=== PATIENT | male | born 1945 | race Caucasian/White ===

== ENCOUNTER 2018-04-25 05:28 | Day surgery (SDC) | payer OTHER, MEDICARE ==
[~2018-04-25] VITALS: Ht 188 cm; Wt 158.8 kg
--- NOTE | ~2018-04-25 | O ---
[facility] [place] [address] OPERATIVE REPORT Name: FLAKITO CALVIN Room #: 150-8 [facility] M..#: [id number] Admission: 04/25/18 Attend Phys: Surinder Mack MD Discharge: Date of : 49 Report #: [id number] THIS REPORT FOR: //name// CC: Jose Rafael Mack DATE OF SERVICE: 04/25/2018 SUPERVISOR PAINTING: None. PREOPERATIVE DIAGNOSIS: Unilateral right upper lid ptosis. POSTOPERATIVE DIAGNOSIS: Unilateral right upper lid ptosis. OPERATION PERFORMED: Unilateral right upper lid ptosis repair. ANESTHESIA: Local anesthesia with IV sedation. COMPLICATIONS: None. INDICATIONS FOR SURGERY: This patient has right upper lid ptosis with superior visual field loss. Visual field testing demonstrates dense superior visual defects. Retesting with the upper lid elevated shows an improvement in visual field loss of over 30% and in excess of 12 degrees. The current procedure is undertaken in order to improve the patient's visual function. Informed consent was obtained to include but not limited to the potential risks for bleeding, scarring, infection, loss of vision, failure to improve the problem, need for further surgery and need for adjustment of lid height. DESCRIPTION OF PROCEDURE: The patient was taken to the operating room, where a right upper lid crease was drawn with a skin marking pen. The incision was then made with Luly scissors and dissected down to the orbital septum. Hemostasis was achieved with a monopolar cautery as it was throughout the case. The orbital septum was then entered and the preaponeurotic fat identified. The levator aponeurosis was then disinserted from the anterior surface of the tarsal plate and dissected free in the avascular Ahumada's muscle plane. The aponeurosis was then advanced onto the anterior surface of the tarsal plate and reattached with mattress double-arm 6-0 Novafil sutures, adjusting for height and contour. The redundant aponeurosis was then amputated. The upper lid crease was then reformed with interrupted 6-0 chromic sutures. The skin was closed with interrupted 6-0 plain gut suture. The wound was then cleaned and dressed with ophthalmic antibiotic ointment. [facility] [address] [place] [address] OPERATIVE REPORT Name: FLAKITO CALVIN Room #: 150-8 [facility].#: [id number] Admission: 04/25/18 Attend Phys: Surindre Mack MD Discharge: Date of : 49 Report #: [id number] The patient was then transported to the recovery area, having tolerated the procedure well with no anesthesia or operative complications being noted. By: [id number] Surinder Mack MD /nt
[~2018-04-25 05:28] MED LIST: APAP650 PO; ASPIRIN81 M2 PO; BETAPACE AF120 MG PO; COUMADIN 2 MG TA2 M1 PO; COUMADIN 3 MG TA3 M1 PO; DEMADEX20 MG PO; LIPITOR 20 MG T20 M1 PO; MELATONIN10 M2 PO; METOLAZONE 5 MG5 MG PO; MEXILETINE HCL250 MG PO; MULTIVITAMINS1 EAC4 PO; POTASSIUM20 PO; PREDNISONE 1 MG1 M1 PO; PROTONIX 20 MG20 M1 PO; TRAMADOL 50 MG50 MG PO; ULORIC80 MG PO; VERAPAMIL ER180 MG PO; VITAMIN B12-FO1 EAC1 PO; VITAMIN D2000 UNIT PO
[2018-04-25 12:33] LABS: INR 1.4; PROTIME 14.7 Seconds (9.3-11.4)
[2018-04-25 14:53] VITALS: BP 121/78
== END 2018-04-25 14:41 | disposition home or self-care (01) ==
LOC: OR 05:28 → TBA 05:29 → OR 08:50
PROVIDERS: Ophthalmology
DX: H02.401 Unspecified ptosis of right eyelid (principal); I10 Essential (primary) hypertension; E78.5 Hyperlipidemia, unspecified; I48.91 Unspecified atrial fibrillation; G47.33 Obstructive sleep apnea (adult) (pediatric); K21.9 Gastro-esophageal reflux disease without esophagitis; Z98.890 Other specified postprocedural states; Z98.41 Cataract extraction status, right eye; Z98.42 Cataract extraction status, left eye; Z85.3 Personal history of malignant neoplasm of breast; Z79.82 Long term (current) use of aspirin; Z79.899 Other long term (current) drug therapy; Z79.01 Long term (current) use of anticoagulants
CPT/HCPCS: 50010; 50101; 50386; 50398; 51636; 56528; 56531; 62110; 62850; 70005